=== PATIENT | female | born 1975 | race African-American/Black ===

== ENCOUNTER 2016-10-03 13:03 | Emergency (ER) | payer OTHER ==
[~2016-10-03] VITALS: Ht 160 cm; Wt 117.9 kg
[~2016-10-03 13:03] MED LIST: ALBUTEROL SULF8.5 GM INH; AUGMENTIN 875-1 EAC1 ORAL; BACTRIM DS TAB1 EAC1 ORAL; BENADRYL50 MG ORAL; DIFLUCAN100 MG ORAL; DIFLUCAN150 MG PO; FLUCONAZOLE100 MG ORAL; GUAIFENESIN DM118 M1 ORAL; GUAIFENESIN-CO118 M1 ORAL; HYDROCHLOROTH12.5 M2 ORAL; HYDROCODON-ACE1 EA15 ORAL; IBUPROFEN400 MG ORAL; IBUPROFEN600 MG ORAL; LOPRESSOR25 M1 ORAL; MEDROL DOSEPAK4 MG ORAL; PREDNISONE50 MG ORAL; ROBAXIN-750750 MG PO; TESSALON PERLE100 M2 ORAL; UNOBMED; ZITHROMAX250 MG ORAL
[2016-10-03 13:31] VITALS: BP 132/87
[2016-10-03] MEDS ORDERED: Methocarbamol 750mg tab ORAL ONE (13:45)
[2016-10-03] MEDS ORDERED: IBUPROFEN600 MG ORAL (15:06)
[2016-10-03] MEDS ORDERED: ROBAXIN-750750 MG PO (15:06)
[2016-10-03 15:18] VITALS: BP 125/84
--- NOTE | 2016-10-03 22:32 | Emergency Room Report ---
History of Present Illness General Chief Complaint: Pain Present Illness HPI The pt is a 41 yo F presenting with R lower leg pain which began this morning for no known reason. Pain is described as a 10/10 dull ache and is described as feeling deep. Pain does not radiate. Pain is worsened with walking. The pt also noticed swelling to the leg. Pt denies numbness or tingling of the extremity. The pt denies any known injury to the leg, OCP use, smoking, or recent long periods of inactivity. Pt denies any other symptoms including N, V,F, chills, CP , SOB, cough, abd pain Allergies: Coded Allergies: TRAMADOL (Verified Allergy, Unknown, 06/12/15) Patient History Past Medical History: see triage record Pertinent Family History: none Reviewed Nursing Documentation: PMH: Agreed, PSxH: Agreed Nursing Documentation-PMH Hx Hypertension: Yes Hx Seizures: Yes Review of Systems All Other Systems: negative except mentioned in HPI Physical Exam Vital Signs Date Time Temp Pulse Resp B/P Pulse Ox O2 Delivery O2 Flow Rate FiO2 10/03/16 13:29 97.9 78 20 132/87 99 10/03/16 15:18 Room Air Sp02 EP Interpretation: reviewed, normal General Appearance: no apparent distress, alert, GCS 15, non-toxic Head: normocephalic, atraumatic Eyes: bilateral eye PERRL, bilateral eye normal inspection ENT: hearing grossly normal, normal pharynx, no angioedema, normal voice Neck: normal inspection, full range of motion, supple/symm/no masses Respiratory: chest non-tender, lungs clear, normal breath sounds, speaking full sentences Cardiovascular #1: regular rate, rhythm, no edema Musculoskeletal: calf tenderness - R mid calf, other - antalgic gait Neurologic: alert, oriented x3, responsive, motor strength/tone normal, sensory intact, speech normal Psychiatric: judgement/insight normal, memory normal, mood/affect normal, no suicidal/homicidal ideation Skin: normal color, no rash, warm/dry, well hydrated Lymphatic: no adenopathy Medical Decision Making PA Attestation Dr. Kirkpatrick is my supervising physician. Patient management was discussed with my supervising physician Diagnostic Impression: Primary Impression: Strain of calf muscle ER Course The pt is a 41 yo F presenting with R calf pain which suddenly began this morning Ddx considered include but not limited to DVT, sprain/strain, fracture, contusion, PE: vitals WNL. No tachypnea. NAD Lungs are CTA bilat. R leg: No visible edema. TTP over the deep mid calf. Evident pain and antalgic gait with ambulation The pt is given motrin and robaxin for pain Venous duplex of the lower leg is unremarkable. No evidence of DVT Neg The pt will be DE'ed home with prescriptions for motrin and robaxin and will FU with PMD. ER precautions given Laboratory Tests Test 10/03/16 13:43 Urine HCG, Qualitative Negative Lab Results Impression Neg preg CT/MRI/US Diagnostic Results CT/MRI/US Diagnostic Results : Imaging Test Ordered: venous duplex Impression No evidence of DVT Last Vital Signs Date Time Temp Pulse Resp B/P Pulse Ox O2 Delivery O2 Flow Rate FiO2 10/03/16 15:18 98.0 80 18 125/84 100 Room Air Status: improved Disposition: HOME, SELF-CARE Condition: Improved Scripts Methocarbamol* (ROBAXIN-750*) 750 Mg Tablet 750 MG PO TID, #21 TAB 0 Refills Prov: AVILA LAGUNAS 10/03/16 Ibuprofen* (MOTRIN*) 600 Mg Tablet 600 MG ORAL Q8H Y for For Pain, #30 TAB 0 Refills Prov: AVILA LAGUNAS.A. 10/03/16 Referrals: RICH GRULLON PLN,REFERRI (PCP) Patient Instructions: Muscle Strain Additional Instructions: I discussed my findings with the patient. All questions and concerns have been answered. Treatment and medication compliance have been addressed. I advised the patient that they need to follow up with PMD in 3-5 days. Return to ED if pain remains or worsens, numbness or tingling occurs, new rash is noticed, fever is noticed, or if needed for any reason. Patient verbalized understanding of discharge instructions. AVILA LAGUNAS Oct 03, 2016 22:32
--- NOTE | 2016-10-07 23:28 | Diagnostic Imaging Report ---
APPROVED REPORT CPT Code: 47355 Present Symptoms Lower Extremity Pain: Right RIGHT LEG: Venous imaging reveals a patent deep venous system. There is no evidence of thrombus within the femoral, popliteal or tibial segments. The greater saphenous vein is also within normal limits. Doppler indicates normal spontaneous flow within these segments.
== END 2016-10-03 15:18 | disposition home or self-care (01) ==
LOC: EMR 13:49
DX: S86.912A Strain of unspecified muscle(s) and tendon(s) at lower leg level, left leg, initial encounter (principal); X58.XXXA Exposure to other specified factors, initial encounter; Y93.9 Activity, unspecified; Y92.9 Unspecified place or not applicable; Z88.8 Allergy status to other drugs, medicaments and biological substances; I10 Essential (primary) hypertension
CPT/HCPCS: 81025; 93971; 99284

== ENCOUNTER 2016-10-17 21:38 | Emergency (ER) | payer OTHER ==
[~2016-10-17] VITALS: Ht 157.5 cm; Wt 99.8 kg
[2016-10-17] MEDS ORDERED: Morphine Sulfate 4mg/ml Inj IVP ONE ×2 (22:15→23:15)
[2016-10-17] MEDS ORDERED: LORazepam Inj 2mg/ml 1ml IV ONE (22:15)
[2016-10-17 22:44] LABS: BASOPHILS % (AUTO) 0.8 % (0.0-2.0); EOSINOPHILS % (AUTO) 1.1 % (0.0-3.0); LYMPHOCYTES % (AUTO) 18.6 % (20.0-45.0); MEAN CORPUSCULAR HEMOGLOBIN 21.1 PG (27.0-31.0); MEAN CORPUSCULAR HGB CONC 29.6 G/DL (32.0-36.0); MEAN CORPUSCULAR VOLUME 71 FL (80-99); MEAN PLATELET VOLUME 7.3 FL (6.5-10.1); MONOCYTES % (AUTO) 3.7 % (1.0-10.0); NEUTROPHILS % (AUTO) 75.8 % (45.0-75.0); PLATELET COUNT 369 K/UL (150-450); RED BLOOD COUNT 4.22 M/UL (4.20-5.40); RED CELL DISTRIBUTION WIDTH 17.3 % (11.6-14.8); WHITE BLOOD COUNT 11.2 K/UL (4.8-10.8)
[2016-10-17 22:57] LABS: INR 0.9 (0.9-1.1); PROTHROMBIN TIME 9.6 SEC (9.30-11.50)
[2016-10-17 23:02] VITALS: BP 132/79
[2016-10-17 23:03] LABS: ANION GAP 17 (5-15); CALCIUM 8.5 mg/dL (8.6-10.2); CARBON DIOXIDE 25 mEQ/L (20-30); CHLORIDE 96 mEQ/L (98-107); CREATININE 0.9 mg/dL (0.5-0.9); GLOMERULAR FILTRATION RATE > 60 mL/min (>60); HEMOLYSIS 0; POTASSIUM 3.2 mEQ/L (3.4-4.9); SODIUM 138 mEQ/L (135-145)
[2016-10-18 00:44] LABS: CKMB 2.6 ng/mL (< 3.8)
[2016-10-18 01:00] VITALS: BP 137/76
[2016-10-18] MEDS ORDERED: HYDROmorphone 1mg/ml Carpuject ONE (01:31)
[2016-10-18] MEDS ORDERED: HYDROmorphone 1mg/ml Carpuject IVP ONE (02:00)
--- NOTE | 2016-10-18 02:14 | Emergency Room Report ---
History of Present Illness General Chief Complaint: Pain Source: Patient Present Illness HPI Is a 41-year-old female with no past medical history. She presents with chief complaint of right leg pain and swelling. Onset was acute and occurred about 2 hours ago. No trauma. She has some is symptom 2 weeks ago. She came here and negative ultrasound. The next day she had bruising laterally and the swelling went down. Today swelling is worse. She felt numbness and tightness. No fever or chills. Worse with movement. Worse with walking. Allergies: Coded Allergies: TRAMADOL (Verified Allergy, Unknown, 06/12/15) Patient History Past Medical History: none, see triage record, old chart reviewed Past Surgical History: none Pertinent Family History: none Social History: Denies: smoking Now: No Immunizations: other Reviewed Nursing Documentation: PMH: Agreed, PSxH: Agreed Nursing Documentation-PMH Past Medical History: No History, Except For Hx Hypertension: Yes Hx Seizures: Yes Review of Systems Eye: Denies: blurred vision, eye pain ENT: Denies: ear pain, nose congestion, throat swelling Respiratory: Denies: cough, shortness of breath Cardiovascular: Denies: chest pain, palpitations Gastrointestinal: Denies: abdominal pain, diarrhea, nausea, vomiting Musculoskeletal: Reports: muscle pain, Denies: back pain, joint pain Skin: Denies: rash Neurological: Denies: headache, numbness Endocrine: Denies: increased thirst, increased urine Hematologic/Lymphatic: Denies: easy bruising All Other Systems: negative except mentioned in HPI Physical Exam Vital Signs Date Time Temp Pulse Resp B/P Pulse Ox O2 Delivery O2 Flow Rate FiO2 10/17/16 21:54 97.5 97 15 132/79 98 Room Air vitals normal Sp02 EP Interpretation: reviewed, normal General Appearance: well appearing, no apparent distress, alert, obese Head: normocephalic, atraumatic Eyes: bilateral eye EOMI, bilateral eye PERRL ENT: hearing grossly normal, normal pharynx Neck: full range of motion, supple, no meningismus Respiratory: chest non-tender, lungs clear, normal breath sounds Cardiovascular #1: regular rate, rhythm, no murmur Gastrointestinal: normal bowel sounds, non tender, no mass, no organomegaly, no bruit, non-distended Musculoskeletal: back normal, normal range of motion, other - Right lower leg: She has edema and tightness to the lower extremity. Most of the tightness is in the superficial posterior and lateral compartments. She has strong pulses and sensation. Normal warmth. Movement of the ankle there is increased pain but not severely. Full range of motion of the knee. Neurologic: alert, oriented x3 Psychiatric: mood/affect normal Skin: warm/dry Medical Decision Making Diagnostic Impression: Primary Impression: Right leg swelling ER Course She presents with edema and swelling to the right lower extremity. No evidence of DVT. She may have a bleeding varicose vein that causes swelling. No evidence of arterial occlusion. My main concern is that this may be compartment syndrome. Unknown etiology. Is no trauma. Unfortunately, I do not have the equipment to measure her compartment pressures. There is no Matt machine in the ER or the hospital. Patient has been here for almost 6 hours now. Her pain is improving. The edema and tenderness also improved. Compartment is now much softer. I suspect that she has a small bleeding varicose vein that causes swelling. Am unable to get her transfer to [facility]. Since she is improving, I think she can go home. Patient and family is agreeable with this. Again there is no trauma or strenuous activities. Lab Results Impression labs normal CT/MRI/US Diagnostic Results CT/MRI/US Diagnostic Results : Imaging Test Ordered: Right lower extremity ultrasound Impression negative for DVT per rigging worker Last Vital Signs Date Time Temp Pulse Resp B/P Pulse Ox O2 Delivery O2 Flow Rate FiO2 10/18/16 01:00 94 16 137/76 100 Room Air 10/17/16 23:42 97.5 Status: unchanged Disposition: HOME, SELF-CARE Condition: Stable Scripts Hydrocodone/Acetaminophen 5-325* (HYDROCODONE/ACETAMINOPHEN 5-325*) 1 Each Tablet 1 TAB ORAL Q6H Y for For Pain, #20 TAB 0 Refills Prov: ARLEEN GARZA M.D. 10/18/16 Referrals: RICH ESTEBAN TH PLN,REFERRI (PCP) Additional Instructions: Elevate leg. Ice pack to area. Return for increasing pain, fever, chills, or any concern. ARLEEN GARZA M.D. Oct 18, 2016 02:14
[2016-10-18] MEDS ORDERED: Bactrim DS (160mg/800mg) tab ORAL ONE (03:15)
[2016-10-18] MEDS ORDERED: HYDROCODON-ACE1 EA15 ORAL (03:22)
[2016-10-18 03:35] VITALS: BP 135/74
--- NOTE | 2016-10-22 10:29 | Diagnostic Imaging Report ---
APPROVED REPORT CPT Code: 33341 Present Symptoms Lower Extremity Pain: Right RIGHT LEG: Venous imaging reveals a patent deep venous system. There is no evidence of thrombus within the femoral, popliteal or tibial segments. The greater saphenous vein is also within normal limits. Doppler indicates normal spontaneous flow within these segments.
== END 2016-10-18 03:35 | disposition home or self-care (01) ==
LOC: EMR 22:00
DX: M79.89 Other specified soft tissue disorders (principal); M79.604 Pain in right leg; R20.0 Anesthesia of skin; Z88.6 Allergy status to analgesic agent; I10 Essential (primary) hypertension
CPT/HCPCS: 36415; 80048; 82550; 82553; 85025; 85610; 85730; 93971; 96374; 96375; 99284; J1170; J2270; J2405

== ENCOUNTER 2016-10-25 01:30 | Inpatient (IN) | payer OTHER ==
[~2016-10-25] VITALS: Ht 160 cm; Wt 100.2 kg
[2016-10-25 01:47] VITALS: BP 130/88
[2016-10-25] MEDS ORDERED: HYDROmorphone 1mg/ml Carpuject IVP ONE ×2 (02:00→04:00)
--- NOTE | 2016-10-25 02:56 | Emergency Room Report ---
History of Present Illness General Chief Complaint: Pain Source: Patient Present Illness HPI Is a 41-year-old female presents with right leg swelling. Has been ongoing for over a week now. I saw her on October 17. Labs unremarkable. Ultrasound negative for DVT but showed generalized edema. Swelling got better but still very painful. Initially, I wanted to rule out compartment syndrome but we do not have the Matt here. Patient was to be transferred to [facility] but symptom got better so she left. She is back now because of increasing pain. Had fever of 103 2 days ago. No new trauma. No nausea no vomiting. pain is 9/10. Allergies: Coded Allergies: TRAMADOL (Verified Allergy, Unknown, 06/12/15) Patient History Past Medical History: see triage record, old chart reviewed Past Surgical History: none Pertinent Family History: none Social History: Denies: smoking Last Menstrual Period: Aug 2016 Now: No Immunizations: other Reviewed Nursing Documentation: PMH: Agreed, PSxH: Agreed Nursing Documentation-PMH Hx Hypertension: Yes Hx Seizures: Yes Review of Systems Eye: Denies: blurred vision, eye pain ENT: Denies: ear pain, nose congestion, throat swelling Respiratory: Denies: cough, shortness of breath Cardiovascular: Denies: chest pain, palpitations Gastrointestinal: Denies: abdominal pain, diarrhea, nausea, vomiting Musculoskeletal: Reports: joint pain, muscle pain, Denies: back pain Skin: Denies: rash Neurological: Denies: headache, numbness Endocrine: Denies: increased thirst, increased urine Hematologic/Lymphatic: Denies: easy bruising All Other Systems: negative except mentioned in HPI Physical Exam Vital Signs Date Time Temp Pulse Resp B/P Pulse Ox O2 Delivery O2 Flow Rate FiO2 10/25/16 01:37 98.8 95 16 135/89 98 Room Air vitals unremarkable Sp02 EP Interpretation: reviewed, normal General Appearance: well appearing, no apparent distress, alert Head: normocephalic, atraumatic Eyes: bilateral eye EOMI, bilateral eye PERRL ENT: hearing grossly normal, normal pharynx Neck: full range of motion, supple, no meningismus Respiratory: chest non-tender, lungs clear, normal breath sounds Cardiovascular #1: regular rate, rhythm, no murmur Gastrointestinal: normal bowel sounds, non tender, no mass, no organomegaly, no bruit, non-distended Musculoskeletal: back normal, normal range of motion, tender - Right leg: Tenderness and edema along the lower extremity. Mostly localized to the lateral right leg/calf area. Sensation normal. Compartments are softer today dad about a week ago. Sensation normal. Dorsalis pedis and posterior tibialis pulses are normal. Neurologic: alert, oriented x3 Psychiatric: mood/affect normal Skin: warm/dry Procedures Additional Procedure Procedure Narrative Procedure: Aspiration Indication: Fluid collection Description: Area clean with Betadine and then chlorhexidine. Local anesthetic with 1% lidocaine without epinephrine. I injected 5 mL. Using a 16-gauge needle and ultrasound guided, I tried aspect of fluid collection. Initially able to get out about 4 mL of clotted blood. Afterward unable to get any more. Wound was cleaned and then dressed sterilely. Patient tolerated procedure without a problem. Medical Decision Making Diagnostic Impression: Primary Impression: Traumatic hematoma of lower leg with infection Qualified Codes: S80.11XA - Contusion of right lower leg, initial encounter; L08.9 - Local infection of the skin and subcutaneous tissue, unspecified ER Course Patient presents with right leg swelling. She did recall that a week ago somebody called her name to turn around quickly. She felt pain in her right calf. Afterward it swell up. She been came to the ER the next day. Labs been was unremarkable. Ultrasound negative for DVT. It did show edema. No fluid collection. She was discharged home and has been icing it down. A day or 2 ago , she spiked a fever. She is afebrile here. Now, CT scan showed a peripherally enhancing heterogeneous fluid collection. This is concerning for hematoma essentially with infection. I started on antibiotics. Was made for IV antibiotics. She may need interventional radiology for drainage. She may need surgical intervention. Laboratory Tests Test 10/25/16 03:55 10/25/16 04:45 White Blood Count 12.0 K/UL (4.8-10.8) H Red Blood Count 4.26 M/UL (4.20-5.40) Hemoglobin 8.9 G/DL (12.0-16.0) L Hematocrit 29.6 % (37.0-47.0) L Mean Corpuscular Volume 69 FL (80-99) L Mean Corpuscular Hemoglobin 20.9 PG (27.0-31.0) L Mean Corpuscular Hemoglobin Concent 30.1 G/DL (32.0-36.0) L Red Cell Distribution Width 18.2 % (11.6-14.8) H Platelet Count 430 K/UL (150-450) Mean Platelet Volume 8.0 FL (6.5-10.1) Neutrophils (%) (Auto) 74.0 % (45.0-75.0) Lymphocytes (%) (Auto) 20.7 % (20.0-45.0) Monocytes (%) (Auto) 3.6 % (1.0-10.0) Eosinophils (%) (Auto) 1.1 % (0.0-3.0) Basophils (%) (Auto) 0.6 % (0.0-2.0) Prothrombin Time 9.7 SEC (9.30-11.50) Prothromb Time International Ratio 1.0 (0.9-1.1) Activated Partial Thromboplast Time 27 SEC (23-33) Sodium Level 138 mEQ/L (135-145) Potassium Level 4.2 mEQ/L (3.4-4.9) Chloride Level 95 mEQ/L (98-107) L Carbon Dioxide Level 27 mEQ/L (20-30) Anion Gap 16 (5-15) H Blood Urea Nitrogen 11 mg/dL (7-23) Creatinine 0.9 mg/dL (0.5-0.9) Estimat Glomerular Filtration Rate > 60 mL/min (>60) Glucose Level 121 mg/dL (74-106) H Calcium Level 9.2 mg/dL (8.6-10.2) Total Bilirubin 0.2 mg/dL (0.0-1.2) Aspartate Amino Transf (AST/SGOT) 29 U/L (5-40) Alanine Aminotransferase (ALT/SGPT) 14 U/L (3-33) Alkaline Phosphatase 74 U/L (35-104) Total Protein 7.7 g/dL (6.6-8.7) Albumin 4.0 g/dL (3.5-5.2) Globulin 3.7 g/dL Albumin/Globulin Ratio 1.0 (1.0-2.7) Lactic Acid Level Pending Lab Results Impression labs mild leukocytosis CT/MRI/US Diagnostic Results CT/MRI/US Diagnostic Results : Imaging Test Ordered: CT right lower extremity Impression Read by radiologist. Peripherally enhancing heterogeneous fluid collection in the posterior compartment of the leg between the muscle layers. Measured 6.3 x 2.7 x 11.2 cm. No gas in the soft tissue. Last Vital Signs Date Time Temp Pulse Resp B/P Pulse Ox O2 Delivery O2 Flow Rate FiO2 10/25/16 01:47 98.8 90 16 130/88 98 Room Air Status: improved Disposition: ADMITTED INPATIENT Condition: Serious Referrals: NON PHYSICIAN (PCP) ARLEEN GARZA M.D. Oct 25, 2016 02:56
[2016-10-25] MEDS ORDERED: Cefepime 1gm vial ONE (03:55)
[2016-10-25] MEDS ORDERED: Cefepime HCl 1 GM in NS 55 ML IV SCH (04:00)
[2016-10-25 04:02] LABS: BASOPHILS % (AUTO) 0.6 % (0.0-2.0); EOSINOPHILS % (AUTO) 1.1 % (0.0-3.0); LYMPHOCYTES % (AUTO) 20.7 % (20.0-45.0); MEAN CORPUSCULAR HEMOGLOBIN 20.9 PG (27.0-31.0); MEAN CORPUSCULAR HGB CONC 30.1 G/DL (32.0-36.0); MEAN CORPUSCULAR VOLUME 69 FL (80-99); MONOCYTES % (AUTO) 3.6 % (1.0-10.0); PLATELET COUNT 430 K/UL (150-450); RED BLOOD COUNT 4.26 M/UL (4.20-5.40); RED CELL DISTRIBUTION WIDTH 18.2 % (11.6-14.8)
[2016-10-25 04:17] LABS: PROTHROMBIN TIME 9.7 SEC (9.30-11.50)
[2016-10-25 04:24] LABS: ALANINE AMINOTRANSFERASE 14 U/L (3-33); ANION GAP 16 (5-15); ASPARTATE AMINO TRANSFERASE 29 U/L (5-40); CALCIUM 9.2 mg/dL (8.6-10.2); CARBON DIOXIDE 27 mEQ/L (20-30); CHLORIDE 95 mEQ/L (98-107); CREATININE 0.9 mg/dL (0.5-0.9); GLOMERULAR FILTRATION RATE > 60 mL/min (>60); HEMOLYSIS 80; POTASSIUM 4.2 mEQ/L (3.4-4.9); SODIUM 138 mEQ/L (135-145); TOTAL PROTEIN 7.7 g/dL (6.6-8.7)
[2016-10-25] MEDS ORDERED: LORazepam Inj 2mg/ml 1ml ONE (04:59)
[2016-10-25] MEDS ORDERED: LORazepam Inj 2mg/ml 1ml IV ONE (05:00)
[2016-10-25 05:15] VITALS: BP 135/84
[2016-10-25 08:03] VITALS: BP 124/78
[2016-10-25] MEDS: Metoprolol 50mg tab ORAL SCH ×2 (09:40→20:33)
[2016-10-25] MEDS: OXcarbazepine 150mg tab ORAL SCH ×2 (12:05→20:32)
[2016-10-25] MEDS: HYDROmorphone 1mg/ml Carpuject IVP PRN ×3 (12:06→20:33)
--- NOTE | 2016-10-25 15:09 | History and Physical ---
History of Present Illness General Reason for Hospitalization: Right leg Pain Present Illness HPI s a 41-year-old female presents with right leg swelling. Has been ongoing for over a week now. was seen on October 17 for the same problem, she was to be transferred to [facility] but symptom got better so she left. Ultrasound negative for DVT but showed generalized edema. She came back to the due to right leg increasing pain. Had fever of 103 2 days ago. No new trauma. No nausea no vomiting. pain is 9/10. Allergies: Coded Allergies: TRAMADOL (Verified Allergy, Unknown, 06/12/15) Medication History Scheduled Cephalexin* (Keflex*), 500 MG ORAL EVERY 12 HOURS, (Reported) Fluconazole (Fluconazole), 150 MG ORAL ONCE, (Reported) Hydrochlorothiazide* (Hydrochlorothiazide*), 12.5 MG ORAL DAILY, (Reported) Methocarbamol* (Robaxin-750*), 750 MG PO TID Metoprolol Tartrate (Metoprolol Tartrate), 25 MG ORAL EVERY 12 HOURS, (Reported) Scheduled PRN Hydrocodone Bit/Acetaminophen 10-325* ([place] 10-325*), 1 TAB ORAL BID PRN for For Pain, (Reported) Hydrocodone/Acetaminophen 5-325* (Hydrocodone/Acetaminophen 5-325*), 1 TAB ORAL Q6H PRN for For Pain Ibuprofen* (Motrin*), 600 MG ORAL Q8H PRN for For Pain Patient History Healthcare decision maker Resuscitation status Full Code Advanced Directive on File Review of Systems Constitutional: Reports: weakness Eye: Denies: acuity changes, blurred vision, discharge, double vision, eye pain , no symptoms, nose congestion, nose pain, other, see HPI, tearing ENT: Denies: ear discharge, ear pain, hearing loss, mouth pain, nasal discharge , no symptoms, nose congestion, nose pain, other, see HPI, throat pain, throat swelling Respiratory: Denies: REY, cough, no symptoms, orthopnea, other, see HPI, shortness of breath, sputum, stridor, wheezing Cardiovascular: Denies: PND, chest pain, edema, no symptoms, other, palpitations, see HPI, syncope Gastrointestinal: Denies: abdominal pain, constipation, diarrhea, hematemesis, melena, nausea, no symptoms, other, see HPI, vomiting Genitourinary: Denies: discharge, dysuria, frequency, hematuria, incontinence, no symptoms, other, pain, retention, see HPI, urgency, vag bleed/dc Musculoskeletal: Reports: other - right leg edema and pain Skin: Denies: change in color, change in hair/nails, dryness, lesions, no symptoms, other, rash, see HPI Psychiatric: Denies: HI, SI, anxiety, depressed feelings, emotional problems, hallucinations, no symptoms, other, prior hx, see HPI Neurological: Denies: dizziness, focal weakness, headache, no symptoms, numbness, other, paresthesia, see HPI, seizure, syncope, tingling, tremors Endocrine: Denies: excessive sweating, flushing, increased thirst, increased urine, intolerance to temperature, no symptoms, other, see HPI, unexplained weight loss Hematologic/Lymphatic: Denies: anemia, blood clots, diathesis, easy bleeding, easy bruising, no symptoms, other, see HPI, swollen glands Physical Exam General Appearance: no apparent distress, alert Lines, tubes and drains: peripheral HEENT: atraumatic, anicteric, mucous membranes moist, PERRL Neck: normal alignment, supple, normal inspection Respiratory/Chest: lungs clear, normal breath sounds, no respiratory distress Cardiovascular/Chest: normal rate, regular rhythm, no JVD Abdomen: soft, no organomegaly, no mass Extremities: calf tenderness, moderate edema - right leg Skin Exam: warm/dry Neurologic: alert, oriented x 3, responsive, normal mood/affect Last 24 Hour Vital Signs Date Time Temp Pulse Resp B/P Pulse Ox O2 Delivery O2 Flow Rate FiO2 10/25/16 09:40 71 124/78 10/25/16 08:03 97.5 71 16 124/78 98 Room Air 10/25/16 05:17 88 18 135/84 98 Room Air 10/25/16 05:15 98.8 88 16 135/84 98 Room Air 10/25/16 04:56 98.8 10/25/16 02:58 98.8 10/25/16 01:47 98.8 90 16 130/88 98 Room Air 10/25/16 01:37 98.8 95 16 135/89 98 Room Air Intake and Output 10/24/16 10/25/16 19:00 07:00 Intake Total 1055 ml Output Total 0 ml Balance 1055 ml IV Total 1055 ml Output Urine Total 0 ml Laboratory Tests Test 10/25/16 03:55 10/25/16 04:45 White Blood Count 12.0 K/UL (4.8-10.8) H Red Blood Count 4.26 M/UL (4.20-5.40) Hemoglobin 8.9 G/DL (12.0-16.0) L Hematocrit 29.6 % (37.0-47.0) L Mean Corpuscular Volume 69 FL (80-99) L Mean Corpuscular Hemoglobin 20.9 PG (27.0-31.0) L Mean Corpuscular Hemoglobin Concent 30.1 G/DL (32.0-36.0) L Red Cell Distribution Width 18.2 % (11.6-14.8) H Platelet Count 430 K/UL (150-450) Mean Platelet Volume 8.0 FL (6.5-10.1) Neutrophils (%) (Auto) 74.0 % (45.0-75.0) Lymphocytes (%) (Auto) 20.7 % (20.0-45.0) Monocytes (%) (Auto) 3.6 % (1.0-10.0) Eosinophils (%) (Auto) 1.1 % (0.0-3.0) Basophils (%) (Auto) 0.6 % (0.0-2.0) Prothrombin Time 9.7 SEC (9.30-11.50) Prothromb Time International Ratio 1.0 (0.9-1.1) Activated Partial Thromboplast Time 27 SEC (23-33) Sodium Level 138 mEQ/L (135-145) Potassium Level 4.2 mEQ/L (3.4-4.9) Chloride Level 95 mEQ/L (98-107) L Carbon Dioxide Level 27 mEQ/L (20-30) Anion Gap 16 (5-15) H Blood Urea Nitrogen 11 mg/dL (7-23) Creatinine 0.9 mg/dL (0.5-0.9) Estimat Glomerular Filtration Rate > 60 mL/min (>60) Glucose Level 121 mg/dL (74-106) H Calcium Level 9.2 mg/dL (8.6-10.2) Total Bilirubin 0.2 mg/dL (0.0-1.2) Aspartate Amino Transf (AST/SGOT) 29 U/L (5-40) Alanine Aminotransferase (ALT/SGPT) 14 U/L (3-33) Alkaline Phosphatase 74 U/L (35-104) Total Protein 7.7 g/dL (6.6-8.7) Albumin 4.0 g/dL (3.5-5.2) Globulin 3.7 g/dL Albumin/Globulin Ratio 1.0 (1.0-2.7) Lactic Acid Level 1.30 mmol/L (0.66-2.22) Height (Feet): 5 Height (Inches): 3.00 Weight (Pounds): 221 Medications Current Medications Medications (Trade) Dose Ordered Sig/Keri Route PRN Reason Start Time Stop Time Status Last Admin Dose Admin Hydromorphone HCl (Dilaudid) 1 mg Q4H PRN IVP For Pain 10/25/16 06:45 11/01/16 06:44 10/25/16 12:06 Metoprolol Tartrate (Lopressor) 50 mg Q12HR ORAL 10/25/16 09:00 11/24/16 08:59 10/25/16 09:40 Oxcarbazepine (Trileptal) 150 mg EVERY 12 HOURS ORAL 10/25/16 12:00 11/24/16 11:59 10/25/16 12:05 Pantoprazole (Protonix) 40 mg DAILY ORAL 10/25/16 12:00 11/24/16 11:59 10/25/16 12:05 Objective Narrative RIGHT LEG: Venous imaging reveals a patent deep venous system. There is no evidence of thrombus within the femoral, popliteal or tibial segments. The greater saphenous vein is also within normal limits. Doppler indicates normal spontaneous flow within these segments. 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 Oct 25, 2016 15:09
[2016-10-25 16:00] VITALS: BP 123/69
[2016-10-25 19:00] VITALS: BP 135/79
[2016-10-26] VITALS (8 sets, daily range): BP systolic 104–142; BP diastolic 58–89
[2016-10-26] MEDS: HYDROmorphone 1mg/ml Carpuject IVP PRN ×6 (00:37→20:29)
[2016-10-26 07:36] LABS: ANION GAP 14 (5-15); CALCIUM 8.9 mg/dL (8.6-10.2); CARBON DIOXIDE 27 mEQ/L (20-30); CHLORIDE 98 mEQ/L (98-107); CREATININE 0.8 mg/dL (0.5-0.9); GLOMERULAR FILTRATION RATE > 60 mL/min (>60); HEMOLYSIS 2; POTASSIUM 3.6 mEQ/L (3.4-4.9); SODIUM 139 mEQ/L (135-145)
[2016-10-26 07:37] LABS: BASOPHILS % (AUTO) 0.5 % (0.0-2.0); EOSINOPHILS % (AUTO) 1.4 % (0.0-3.0); LYMPHOCYTES % (AUTO) 22.4 % (20.0-45.0); MEAN CORPUSCULAR HEMOGLOBIN 21.1 PG (27.0-31.0); MEAN CORPUSCULAR HGB CONC 30.3 G/DL (32.0-36.0); MEAN CORPUSCULAR VOLUME 70 FL (80-99); MONOCYTES % (AUTO) 4.8 % (1.0-10.0); NEUTROPHILS % (AUTO) 70.8 % (45.0-75.0); PLATELET COUNT 359 K/UL (150-450); RED BLOOD COUNT 3.99 M/UL (4.20-5.40); RED CELL DISTRIBUTION WIDTH 17.8 % (11.6-14.8); WHITE BLOOD COUNT 10.4 K/UL (4.8-10.8)
[2016-10-26] MEDS: OXcarbazepine 150mg tab ORAL SCH ×2 (08:38→20:44)
[2016-10-26] MEDS: Metoprolol 50mg tab ORAL SCH ×3 (08:42→20:44)
[2016-10-26] MEDS ORDERED: DiphenhydrAMINE 50mg/ml Inj IVP PRN (10:30)
--- NOTE | 2016-10-26 20:03 | General Progress Note ---
Assessment/Plan Problem List: (1) Traumatic hematoma of lower leg with infection ICD Codes: S80.10XA - Contusion of unspecified lower leg, initial encounter; L08.9 - Local infection of the skin and subcutaneous tissue, unspecified SNOMED: 578560149, [id number], [id number] Qualifiers: Qualified Codes: S80.11XA - Contusion of right lower leg, initial encounter ; L08.9 - Local infection of the skin and subcutaneous tissue, unspecified Status: doing well, stable Assessment/Plan Right leg ulcer (mild) Cx is negative Keflex 500mg po bid x 7days [place] 10/325 mg 1 po bid prn #45 dc home Advised pt to follow up with PCP Subjective Constitutional: Denies: chills, diaphoresis, fever, malaise, no symptoms, other , weakness HEENT: Denies: blurred vision, double vision, ear discharge, ear pain, eye pain , mouth pain, mouth swelling, no symptoms, nose congestion, nose pain, other, tearing, throat pain, throat swelling Cardiovascular: Denies: chest pain, edema, irregular heart rate, lightheadedness, no symptoms, other, palpitations, syncope Respiratory: Denies: SOB at rest, SOB with excertion, cough, no symptoms, orthopnea, other, shortness of breath, sputum, stridor, wheezing Gastrointestinal/Abdominal: Denies: abdomen distended, abdominal pain, black stools, blood in stool, constipated, diarrhea, difficulty swallowing, nausea, no symptoms, other, poor appetite, poor fluid intake, rectal bleeding, tarry stools, vomiting Genitourinary: Denies: burning, discharge, flank pain, frequency, hematuria, incontinence, no symptoms, other, pain, urgency Neurologic/Psychiatric: Denies: anxiety, depressed, emotional problems, headache, no symptoms, numbness, other, paresthesia, pre-existing deficit, seizure, tingling, tremors, weakness Endocrine: Denies: excessive sweating, flushing, increased hunger, increased thirst, increased urine, intolerance to cold, intolerance to heat, no symptoms, other, unexplained weight gain, unexplained weight loss Hematologic/Lymphatic: Denies: anemia, easy bleeding, easy bruising, no symptoms, other Allergies: Coded Allergies: TRAMADOL (Verified Allergy, Unknown, 06/12/15) Subjective In bed, in no apparent distress, stated that she still has some pain in her leg , discussed with pt to follow up with PCP. Objective Last 24 Hour Vital Signs Date Time Temp Pulse Resp B/P Pulse Ox O2 Delivery O2 Flow Rate FiO2 10/26/16 16:17 98.4 69 19 110/58 96 Room Air 10/26/16 12:20 98.0 70 19 125/73 95 Room Air 10/26/16 10:10 82 124/65 10/26/16 10:10 82 124/65 10/26/16 08:10 98.1 76 19 104/63 95 Room Air 10/26/16 04:00 97.5 81 18 118/64 96 Room Air 10/26/16 00:20 97.9 70 18 142/89 96 Room Air 10/25/16 21:03 98.1 10/25/16 20:33 91 135/79 Intake and Output 10/25/16 10/26/16 19:00 07:00 Intake Total 1000 ml 240 ml Balance 1000 ml 240 ml Intake Oral 1000 ml 240 ml # Voids 2 7 Laboratory Tests 10/26/16 04:40: White Blood Count 10.4, Red Blood Count 3.99L, Hemoglobin 8.4L, Hematocrit 27.8L , Mean Corpuscular Volume 70L, Mean Corpuscular Hemoglobin 21.1L, Mean Corpuscular Hemoglobin Concent 30.3L, Red Cell Distribution Width 17.8H, Platelet Count 359, Mean Platelet Volume 8.0, Neutrophils (%) (Auto) 70.8, Lymphocytes (%) (Auto) 22.4, Monocytes (%) (Auto) 4.8, Eosinophils (%) (Auto) 1.4, Basophils (%) (Auto) 0.5, Sodium Level 139, Potassium Level 3.6, Chloride Level 98, Carbon Dioxide Level 27, Anion Gap 14, Blood Urea Nitrogen 12, Creatinine 0.8, Estimat Glomerular Filtration Rate > 60, Glucose Level 110H, Calcium Level 8.9 10/26/16 12:25: Urine HCG, Qualitative Negative Height (Feet): 5 Height (Inches): 3.00 Weight (Pounds): 221 General Appearance: no apparent distress, alert EENT: normal ENT inspection Neck: non-tender, normal alignment, supple, normal inspection Cardiovascular: normal rate, regular rhythm, no JVD Respiratory/Chest: lungs clear, normal breath sounds, no respiratory distress, no accessory muscle use Abdomen: non tender, soft, no organomegaly Pelvis: normal external exam Extremities: normal range of motion, non-tender, normal inspection, no calf tenderness, other - right leg ulcer 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 Oct 26, 2016 20:03
[2016-10-26] MEDS ORDERED: NORCO 10-325 T1 EACH ORAL (22:02)
[2016-10-26] MEDS ORDERED: CEPHALEXIN500 MG ORAL (22:02)
[2016-10-26] MEDS ORDERED: FLUCONAZOLE100 MG ORAL (22:04)
--- NOTE | 2016-10-27 08:05 | Diagnostic Imaging Report ---
Indication: Right leg swelling Technique: CT of the right tibia/fibula utilizing automated exposure control with intravenous contrast. Venous scanning performed. CT dose: Total DLP 629 mGycm; CTDI vol 15.3 mGy Comparison: None Findings: There is no acute fracture or dislocation. There is a peripherally enhancing heterogeneous collection/mass in the posterior compartment of the right leg deep to the gastrocnemius measuring approximately 6.3 x 2.7 x 11.2 cm. There is also mild subcutaneous stranding. No soft tissue gas is identified. Impression: Approximately 6.3 x 2.7 x 1.2 cm peripherally enhancing heterogeneous collection/mass of the posterior right leg deep to the gastrocnemius. Although this could represent a hematoma, superimposed infection or underlying neoplasm not completely excluded. Clinical correlation recommended. Followup to resolution versus further evaluation with MRI recommended. The CT scanner at [facility] is accredited by the [employer] and the scans are performed using protocols designed to limit radiation exposure to as low as reasonably achievable to attain images of sufficient resolution adequate for diagnostic evaluation.
--- NOTE | 2016-10-27 12:28 | Discharge Summary ---
Discharge Summary Hospital Course Date of Admission Oct 25, 2016 at 04:40 Date of Discharge Oct 26, 2016 at 22:30 Admitting Diagnosis Infected right leg hematoma HPI Shanae Davis is a 41 year old female who was admitted on Oct 25, 2016 at 04: 40 for Infected Right Leg Hematoma. Patient is a 41-year-old female presents with right leg swelling. Has been ongoing for over a week now. Labs unremarkable. Ultrasound negative for DVT but showed generalized edema. Swelling got better but still very painful. Initially, I wanted to rule out compartment syndrome but we do not have the Matt here. Patient was to be transferred to [facility] but symptom got better so she left. She is back now because of increasing pain. Had fever of 103 2 days ago. No new trauma. No nausea no vomiting. pain is 9/10. Patient History Past Medical History: see triage record, old chart reviewed Past Surgical History: none Pertinent Family History: none Social History: Denies: smoking Last Menstrual Period: Aug 2016 Now: No Immunizations: other Reviewed Nursing Documentation: PMH: Agreed, PSxH: Agreed Nursing Documentation-PMH Hx Hypertension: Yes Hx Seizures: Yes Last Vital Signs Procedures ER Procedure: Aspiration Indication: Fluid collection Description: Area clean with Betadine and then chlorhexidine. Initially able to get out about 4 mL of clotted blood. Patient tolerated procedure without a problem. CT/MRI/US Diagnostic Results : Imaging Test Ordered: CT right lower extremity Impression Read by radiologist. Peripherally enhancing heterogeneous fluid collection in the posterior compartment of the leg between the muscle layers. Measured 6.3 x 2.7 x 11.2 cm. No gas in the soft tissue. WOUND CULTURE Preliminary - Organism 1 >> GRAM NEGATIVE BACILLUS 1 Hospital Course Medical Decision Making Diagnostic Impression: Primary Impression: Traumatic hematoma of lower leg with infection Qualified Codes: S80.11XA - Contusion of right lower leg, initial encounter; L08.9 - Local infection of the skin and subcutaneous tissue, unspecified ER Course Patient presents with right leg swelling. She did recall that a week ago somebody called her name to turn around quickly. She felt pain in her right calf. Afterward it swell up. She been came to the ER the next day. Labs been was unremarkable. Ultrasound negative for DVT. It did show edema. No fluid collection. She was discharged home and has been icing it down. A day or 2 ago , she spiked a fever. She is afebrile here. Now, CT scan showed a peripherally enhancing heterogeneous fluid collection. This is concerning for hematoma essentially with infection. I started on antibiotics. Was made for IV antibiotics. She may need interventional radiology for drainage. She may need surgical intervention. 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 Discharge Medications Continued Medications: Cephalexin* (Keflex*) 500 Mg Capsule 500 MG ORAL EVERY 12 HOURS for 7 Days, #14 CAP 0 Refills Fluconazole (Fluconazole) 100 Mg Tablet 150 MG ORAL ONCE, #1 TAB 0 Refills Hydrocodone Bit/Acetaminophen 10-325* ([place] 10-325*) 1 Each Tablet 1 TAB ORAL BID PRN for For Pain, #45 TAB 0 Refills PRN PAIN Discharge Condition Upon Discharge: stable Discharge Disposition Patient was discharged to Home (01) Discharge Diagnoses: (1) Traumatic hematoma (2) SIRS (systemic inflammatory response syndrome) Discharge Instructions Discharge Instructions Special Instructions NURSE NOTES: Patient d/c, ambulates steadily. No s/s of distress. Belongings accounted for. Discharge instructions given. Patient denies pain at this time. IV site d/c'd. Family with patient. Verbalized understanding of discharge instructions. Patient is stable. I have been assigned to the discharge summary of this patient and did not provide any care for the patient. Daisy Styles NP, N.P. Oct 27, 2016 12:28
--- NOTE | 2016-10-28 15:22 | Diagnostic Imaging Report ---
APPROVED REPORT CPT Code: 48975 Present Symptoms Lower Extremity Pain: Right RIGHT LEG: Venous imaging reveals a patent deep venous system. There is no evidence of thrombus within the femoral, popliteal or tibial segments. The greater saphenous vein is also within normal limits. Doppler indicates normal spontaneous flow within these segments.
== END 2016-10-26 22:30 | disposition home or self-care (01) | DRG 384 ==
LOC: EMR 01:58 → 4E 04:40 → EDBEDREQ 04:55 → 4E 05:47
PROC: 0J9N3ZZ Drainage of Right Lower Leg Subcutaneous Tissue and Fascia, Percutaneous Approach (ICD-10-PCS; principal; 2016-10-25)
DX: S80.11XA Contusion of right lower leg, initial encounter (principal); R65.10 Systemic inflammatory response syndrome (SIRS) of non-infectious origin without acute organ dysfunction; L97.819 Non-pressure chronic ulcer of other part of right lower leg with unspecified severity; I10 Essential (primary) hypertension; L08.9 Local infection of the skin and subcutaneous tissue, unspecified; G40.909 Epilepsy, unspecified, not intractable, without status epilepticus; X58.XXXA Exposure to other specified factors, initial encounter; Z88.6 Allergy status to analgesic agent
CPT/HCPCS: 36415; 80048; 80053; 81025; 83605; 85025; 85610; 85730; 87040; 87070; 87205; 93971; J2405

== ENCOUNTER 2017-01-14 18:34 | Emergency (ER) | payer OTHER ==
[~2017-01-14] VITALS: Ht 160 cm; Wt 98.9 kg
[~2017-01-14 18:34] MED LIST changes: +CEPHALEXIN500 MG ORAL; +NORCO 10-325 T1 EACH ORAL
[2017-01-14 18:43] VITALS: BP 119/72
[2017-01-14] MEDS ORDERED: Albuterol ud Inhalation HHN ONE (19:15)
--- NOTE | 2017-01-14 20:12 | Emergency Room Report ---
History of Present Illness General Chief Complaint: Upper Respiratory Illness Source: Patient Present Illness HPI 41-year-old female with productive cough, subjective fevers, 6/10 sore throat and fatigue x5 days. She also reports diarrhea x 1 day. Denies abdominal pain , nausea, vomiting, abdominal tenderness. Patient reports 3 episodes of loose stools denies recent antibiotic use. Denies blood in the stool or black tarry stools. Patient reports inability to take a deep breath as it causes her to cough consistently. Patient reports wheezing. Patient states she gets bronchitis and pneumonia frequently. She has had no relief from OTC cough Syrups. She denies ill contacts, rashes, or recent travel. Denies CP, Palpitations, LOC, AMS, dizziness, Changes in Vision, Sensation, paresthesias, or a sudden severe headache. Allergies: Coded Allergies: TRAMADOL (Verified Allergy, Unknown, 06/12/15) Patient History Past Medical History: see triage record Past Surgical History: none Pertinent Family History: none Last Menstrual Period: 2 weeks ago Now: No Reviewed Nursing Documentation: PMH: Agreed, PSxH: Agreed Nursing Documentation-PMH Past Medical History: No History, Except For Hx Cardiac Problems: No - DVT Hx Hypertension: Yes Hx Cancer: No Hx Gastrointestinal Problems: Yes Hx Dialysis: No Hx Neurological Problems: Yes Hx Seizures: Yes Review of Systems All Other Systems: negative except mentioned in HPI Physical Exam Vital Signs Date Time Temp Pulse Resp B/P Pulse Ox O2 Delivery O2 Flow Rate FiO2 01/14/17 18:43 98.4 98 16 119/72 100 Room Air Sp02 EP Interpretation: reviewed, normal General Appearance: no apparent distress, alert, GCS 15, non-toxic Head: normocephalic, atraumatic Eyes: bilateral eye PERRL, bilateral eye normal inspection ENT: hearing grossly normal, normal pharynx, no angioedema, normal voice Neck: full range of motion, supple/symm/no masses Respiratory: chest non-tender, no respiratory distress, no accessory muscle use , speaking full sentences, wheezing Cardiovascular #1: regular rate, rhythm, no edema Gastrointestinal: normal bowel sounds - hyperactive bowel sounds, non tender, soft, non-distended, no guarding, no rebound Rectal: deferred Genitourinary: normal inspection, no CVA tenderness Musculoskeletal: back normal, gait/station normal, normal range of motion, non- tender Neurologic: alert, oriented x3, responsive, motor strength/tone normal, sensory intact, speech normal Psychiatric: judgement/insight normal, memory normal, mood/affect normal Skin: normal color, no rash, warm/dry, well hydrated Lymphatic: no adenopathy Medical Decision Making PA Attestation Dr. Mccormick is my supervising Physician whom patient management has been discussed with. Diagnostic Impression: Primary Impression: Acute bronchitis Qualified Codes: J20.9 - Acute bronchitis, unspecified Additional Impressions: URI, acute Diarrhea Qualified Codes: R19.7 - Diarrhea, unspecified ER Course 41-year-old female with productive cough, subjective fevers, 6/10 sore throat and fatigue x5 days. She also reports diarrhea x 1 day. Denies abdominal pain , nausea, vomiting, abdominal tenderness. Patient reports 3 episodes of loose stools denies recent antibiotic use. Denies blood in the stool or black tarry stools. Patient reports inability to take a deep breath as it causes her to cough consistently. Patient reports wheezing. Patient states she gets bronchitis and pneumonia frequently. She denies ill contacts, rashes, or recent travel. Denies CP, Palpitations, LOC, AMS, dizziness, Changes in Vision, Sensation, paresthesias, or a sudden severe headache. -no relief from OTC cough syrups. Ddx considered but are not limited to URI, pneumonia, PE, strep pharyngitis, meningitis, GE, bronchitis Vital signs: Pt. is afebrile, the remaining VS are WNL H&PE are most consistent with URI- no meningeal signs, oropharynx is not involved, no evidence of bacterial infection at this time. ORDERS: -CXR: No consolidation, effusion, pneumothorax or acute cardiopulmonary findings per soft read in ED by Dr. Mccormick ED INTERVENTIONS: -Albuterol Nebulized tx. -Viscous lidocaine for sore throat. --PT. EDUCATION: Discussed antibiotic resistance with inappropriate prescribing of antibiotics for viral illnesses. Discussed signs and symptoms to indicate viral illness versus bacterial illness. DISCHARGE: At this time pt. is stable for d/c to home. Will provide printed patient care instructions, and any necessary prescriptions. Care plan and follow up instructions have been discussed with the patient prior to discharge. Last Vital Signs Date Time Temp Pulse Resp B/P Pulse Ox O2 Delivery O2 Flow Rate FiO2 01/14/17 19:39 90 20 98 Room Air 01/14/17 18:43 98.4 119/72 Disposition: HOME, SELF-CARE Condition: Stable Scripts Prednisone* (PREDNISONE*) 20 Mg Tablet 40 MG ORAL DAILY for 5 Days, #10 TAB Prov: Claudia Sauer 01/14/17 Dicyclomine Hcl* (BENTYL*) 10 Mg Capsule 10 MG ORAL FOUR TIMES A DAY for 2 Days, #9 CAP Prov: Claudia Sauer 01/14/17 Codeine/Promethazine Hcl* (PROMETHAZINE-CODEINE SYRUP*) 118 Ml Syrup 5 ML ORAL Q4H Y for For Cough, #118 ML 0 Refills Prov: Claudia Sauer 01/14/17 Albuterol Sulfate* (ALBUTEROL SULFATE MDI*) 8.5 Gm Hfa.aer.ad 2 PUFF INH Q3H, #1 INH 0 Refills Prov: Claudia Sauer 01/14/17 Patient Instructions: Acute Bronchitis, [id number], Diarrhea, Adult, Easy-to- Read Additional Instructions: Take medications as directed. Follow up with PCP in 3-5 days Return sooner to ED if new symptoms occur, or current symptoms become worse. Do not drink alcohol, drive, or operate heavy machinery while taking cough syrup as this may cause drowsiness. - Please note that this Emergency Department Report was dictated using [employer] technology software, occasionally this can lead to erroneous entry secondary to interpretation by the dictation equipment. Claudia Sauer Jan 14, 2017 20:12
[2017-01-14] MEDS ORDERED: ALBUTEROL SULF8.5 GM INH (20:16)
[2017-01-14] MEDS ORDERED: PROMETHAZINE-C118 M1 ORAL (20:16)
[2017-01-14] MEDS ORDERED: BENTYL10 MG ORAL (20:16)
[2017-01-14] MEDS ORDERED: PREDNISONE20 MG ORAL (20:16)
[2017-01-14 20:30] VITALS: BP 120/74
[2017-01-14] MEDS ORDERED: Lidocaine 2% Visc 15ml soln ORAL ONE (20:30)
--- NOTE | 2017-01-16 08:23 | Diagnostic Imaging Report ---
Indication: COUGH Technique: One view of the chest Comparison: Lung 06/11/2014 Findings: Lungs and pleural spaces are clear. Heart size is normal. No significant change Impression: No acute process This agrees with the preliminary interpretation provided by the emergency room physician
== END 2017-01-14 20:30 | disposition home or self-care (01) ==
LOC: EMR 19:50
DX: J20.9 Acute bronchitis, unspecified (principal); J06.9 Acute upper respiratory infection, unspecified; R19.7 Diarrhea, unspecified; Z86.718 Personal history of other venous thrombosis and embolism; Z88.8 Allergy status to other drugs, medicaments and biological substances; I10 Essential (primary) hypertension
CPT/HCPCS: 71010; 94640; 94664; 99284

== ENCOUNTER 2017-01-17 21:21 | Emergency (ER) | payer OTHER ==
[~2017-01-17] VITALS: Ht 160 cm; Wt 99.3 kg
[~2017-01-17 21:21] MED LIST changes: +BENTYL10 MG ORAL; +PREDNISONE20 MG ORAL; +PROMETHAZINE-C118 M1 ORAL
[2017-01-17 21:35] VITALS: BP 138/90
[2017-01-17] MEDS ORDERED: Ipratropium 0.02% Inh Soln 2.5ml UD ONE (21:48)
[2017-01-17] MEDS ORDERED: Albuterol ud Inhalation ONE (21:48)
[2017-01-17] MEDS ORDERED: Albuterol ud Inhalation HHN ONE (22:00)
[2017-01-17] MEDS ORDERED: Solu-MEDROL 125mg Inj IVP ONE (22:00)
[2017-01-17] MEDS ORDERED: Ipratropium 0.02% Inh Soln 2.5ml UD HHN ONE (22:00)
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
[2017-01-17] MEDS ORDERED: HYDROmorphone 1mg/ml Carpuject IVP ONE ×2 (22:15→23:15)
[2017-01-17 22:16] LABS: MEAN CORPUSCULAR HEMOGLOBIN 19.8 PG (27.0-31.0); MEAN CORPUSCULAR HGB CONC 30.5 G/DL (32.0-36.0); MEAN CORPUSCULAR VOLUME 65 FL (80-99); PLATELET COUNT 414 K/UL (150-450); RED CELL DISTRIBUTION WIDTH 17.1 % (11.6-14.8); WHITE BLOOD COUNT 16.2 K/UL (4.8-10.8)
[2017-01-17 22:18] LABS: BASOPHILS % (AUTO) 0.2 % (0.0-2.0); LYMPHOCYTES % (AUTO) 5.1 % (20.0-45.0); MONOCYTES % (AUTO) 2.5 % (1.0-10.0); NEUTROPHILS % (AUTO) 92.1 % (45.0-75.0)
[2017-01-17 22:43] LABS: ANION GAP 17 (5-15); CALCIUM 9.2 mg/dL (8.6-10.2); CARBON DIOXIDE 24 mEQ/L (20-30); CHLORIDE 98 mEQ/L (98-107); GLOMERULAR FILTRATION RATE > 60 mL/min (>60); HEMOLYSIS 8; POTASSIUM 3.3 mEQ/L (3.4-4.9); SODIUM 139 mEQ/L (135-145)
[2017-01-17 23:00] VITALS: BP 143/85
[2017-01-18] MEDS ORDERED: HYDROCODON-ACE1 EA15 ORAL (00:28)
[2017-01-18] MEDS ORDERED: ALBUTEROL SULF8.5 GM INH (00:28)
[2017-01-18] MEDS ORDERED: PREDNISONE20 MG ORAL (00:28)
[2017-01-18 00:44] VITALS: BP 131/75
== END 2017-01-18 00:44 | disposition home or self-care (01) ==
LOC: EMR 22:06
DX: J98.01 Acute bronchospasm (principal); J18.9 Pneumonia, unspecified organism; I10 Essential (primary) hypertension; Z88.6 Allergy status to analgesic agent
CPT/HCPCS: 36415; 80048; 85025; 94664; 96374; 96375; 99284; J1170; J2405; J2930

== ENCOUNTER 2017-02-16 18:19 | Emergency (ER) | payer OTHER ==
[~2017-02-16] VITALS: Ht 160 cm; Wt 98.9 kg
[2017-02-16 18:50] VITALS: BP 157/100
[2017-02-16] MEDS ORDERED: Albuterol ud Inhalation HHN ONE (19:00)
[2017-02-16] MEDS ORDERED: Ipratropium 0.02% Inh Soln 2.5ml UD HHN ONE (19:00)
[2017-02-16] MEDS ORDERED: Tylenol #3 tab (300mg/30mg) ORAL ONE (19:45)
[2017-02-16] MEDS ORDERED: PROAIR HFA8.5 GM INH (19:46)
[2017-02-16] MEDS ORDERED: PREDNISONE20 MG ORAL (19:46)
[2017-02-16] MEDS ORDERED: ACETAMINOPHEN-1 EAC1 ORAL (19:46)
[2017-02-16] MEDS ORDERED: ZITHROMAX250 MG ORAL (19:46)
[2017-02-16 20:00] VITALS: BP 130/90
--- NOTE | 2017-02-16 22:24 | Emergency Room Report ---
History of Present Illness General Chief Complaint: Upper Respiratory Illness Source: Patient Present Illness HPI The patient is a 41-year-old female presenting for 5 weeks of cough and fevers. She has tried [id number] cough medications which have not helped. She denies any known sick contacts or recent travel. She admits to a 5/10 dull ache to the mid chest which occurs only with coughing. Does not radiate. She denies hemoptysis. She denies other symptoms including nausea, vomiting, rash, headache, stiff neck Allergies: Coded Allergies: TRAMADOL (Verified Allergy, Unknown, 06/12/15) Patient History Past Medical History: see triage record Pertinent Family History: none Last Menstrual Period: JANUARY 28, 2017 Reviewed Nursing Documentation: PMH: Agreed, PSxH: Agreed Nursing Documentation-PMH Past Medical History: No History, Except For Hx Cardiac Problems: No - DVT, ovarian cyst Hx Hypertension: Yes Hx Cancer: No Hx Gastrointestinal Problems: Yes - Gastric ulcer; dilated esophagus Hx Dialysis: No Hx Neurological Problems: Yes Hx Seizures: Yes Review of Systems All Other Systems: negative except mentioned in HPI Physical Exam Vital Signs Date Time Temp Pulse Resp B/P Pulse Ox O2 Delivery O2 Flow Rate FiO2 02/16/17 18:28 98.8 98 20 157/109 96 Room Air Sp02 EP Interpretation: reviewed, normal General Appearance: no apparent distress, alert, GCS 15, non-toxic Head: normocephalic, atraumatic Eyes: bilateral eye PERRL, bilateral eye normal inspection ENT: hearing grossly normal, normal pharynx, no angioedema, normal voice Respiratory: no retraction, no accessory muscle use, speaking full sentences, wheezing - bilat diffuse Cardiovascular #1: regular rate, rhythm, no edema Genitourinary: normal inspection, no CVA tenderness Musculoskeletal: back normal, gait/station normal, normal range of motion, non- tender Neurologic: alert, oriented x3, responsive, motor strength/tone normal, sensory intact, speech normal Psychiatric: judgement/insight normal, memory normal, mood/affect normal, no suicidal/homicidal ideation Skin: normal color, no rash, warm/dry, well hydrated Lymphatic: no adenopathy Medical Decision Making PA Attestation Dr. Blair is my supervising physician. Patient management was discussed with my supervising physician Diagnostic Impression: Primary Impression: Bronchitis ER Course The patient is a 41-year-old female presenting for 5 weeks of cough and fevers Differential diagnosis include but not limited to pharyngitis, sinusitis, AOM, bronchitis, PNA Physical exam: Afebrile. No apparent distress HEENT exam is unremarkable. There is diffuse bilateral wheezing The patient is given a breathing treatment with improvement of wheezing due to symptoms lasting 5 months with no improvement, the patient will be given antibiotics. She'll also be given oral steroids, albuterol, and cough medication. ER precautions given Last Vital Signs Date Time Temp Pulse Resp B/P Pulse Ox O2 Delivery O2 Flow Rate FiO2 02/16/17 20:00 98.8 95 16 130/90 100 Room Air Status: improved Disposition: HOME, SELF-CARE Condition: Improved Scripts Prednisone* (PREDNISONE*) 20 Mg Tablet 40 MG ORAL DAILY, #10 TAB Prov: AVILA LAGUNAS P.A. 02/16/17 Albuterol Sulfate* (PROAIR HFA*) 8.5 Gm Hfa.aer.ad 2 PUFFS INH Q6H, #8.5 GM 0 Refills Prov: AVILA LAGUNAS.A. 02/16/17 Azithromycin* (ZITHROMAX*) 250 Mg Tablet 250 MG ORAL DAILY, #6 TAB 0 Refills Take two tables once daily for 1 day, then one tablet once daily for 4 days. Prov: AVILA LAGUNAS.A. 02/16/17 Acetaminophen With Codeine (T#3) (TYLENOL #3 TAB*) Y Tab 1 TAB ORAL Q6HR Y for For Pain, #10 TAB Prov: AVILA LAGUNAS.A. 02/16/17 Referrals: [facility] (PCP) Patient Instructions: Acute Bronchitis Additional Instructions: I discussed my findings with the patient. All questions and concerns have been answered. Treatment and medication compliance have been addressed. I advised the patient that they need to follow up with PMD in 3-5 days. Return to ED if pain remains or worsens, cough worsens or remains, you notice blood in your sputum, you notice wheezing, you experience a fever, or if needed for any reason. Patient verbalized understanding of discharge instructions. AVILA LAGUNAS Feb 16, 2017 22:24
== END 2017-02-16 20:05 | disposition home or self-care (01) ==
LOC: EMR 20:00
DX: J40 Bronchitis, not specified as acute or chronic (principal); I10 Essential (primary) hypertension; Z86.718 Personal history of other venous thrombosis and embolism; Z87.11 Personal history of peptic ulcer disease
CPT/HCPCS: 94640; 94664; 99284

== ENCOUNTER 2017-04-14 20:44 | Emergency (ER) | payer OTHER ==
[~2017-04-14] VITALS: Ht 160 cm; Wt 99.3 kg
[~2017-04-14 20:44] MED LIST changes: +ACETAMINOPHEN-1 EAC1 ORAL; +PROAIR HFA8.5 GM INH
--- NOTE | 2017-04-14 21:14 | Emergency Room Report ---
History of Present Illness General Chief Complaint: Chest Pain Source: Patient Present Illness HPI Is a 41-year-old female who presents with 2 complaints. The first complaint is cough and chest pain. His been ongoing for last 2 days. No fever or chills. No nausea no vomiting. Cough is nonproductive in nature. Now with chest pain. Worse with coughing. No radiation. No diaphoresis. No exertional component. Her second complaint is right arm pain. Worse with movement. Tingling in nature. [place] swollen. Mostly to the upper forearm. Allergies: Coded Allergies: TRAMADOL (Verified Allergy, Unknown, 06/12/15) Patient History Past Medical History: see triage record, old chart reviewed, HTN Past Surgical History: other Pertinent Family History: none Social History: Denies: smoking Immunizations: other Reviewed Nursing Documentation: PMH: Agreed, PSxH: Agreed Nursing Documentation-PMH Past Medical History: No History, Except For Hx Cardiac Problems: No - DVT, ovarian cyst Hx Hypertension: Yes Hx Cancer: No Hx Gastrointestinal Problems: Yes - Gastric ulcer; dilated esophagus Hx Dialysis: No Hx Neurological Problems: Yes Hx Seizures: Yes Review of Systems Eye: Denies: eye pain, blurred vision ENT: Denies: ear pain, nose congestion, throat swelling Respiratory: Reports: cough, Denies: shortness of breath Cardiovascular: Reports: chest pain, Denies: palpitations Gastrointestinal: Denies: abdominal pain, diarrhea, nausea, vomiting Musculoskeletal: Reports: joint pain, Denies: back pain Skin: Denies: rash Neurological: Denies: headache, numbness Endocrine: Denies: increased thirst, increased urine Hematologic/Lymphatic: Denies: easy bruising All Other Systems: negative except mentioned in HPI Physical Exam Vital Signs Date Time Temp Pulse Resp B/P (MAP) Pulse Ox O2 Delivery O2 Flow Rate FiO2 04/14/17 20:48 98.4 119 21 174/116 99 Room Air vitals with htn Sp02 EP Interpretation: reviewed, normal General Appearance: well appearing, no apparent distress, alert Head: normocephalic, atraumatic Eyes: bilateral eye PERRL, bilateral eye EOMI ENT: hearing grossly normal, normal pharynx Neck: full range of motion, supple, no meningismus Respiratory: chest non-tender, lungs clear, normal breath sounds Cardiovascular #1: regular rate, rhythm, no murmur Gastrointestinal: normal bowel sounds, non tender, no mass, no organomegaly, no bruit, non-distended Musculoskeletal: back normal, gait/station normal, normal range of motion, tender - Right forearm: Tenderness to the proximal forearm on the ulnar aspect. Mild edema. Radial pulse 2+. Psychiatric: mood/affect normal Skin: warm/dry Medical Decision Making Diagnostic Impression: Primary Impression: Chest pain Qualified Codes: R07.9 - Chest pain, unspecified Additional Impressions: Acute bronchitis Qualified Codes: J20.9 - Acute bronchitis, unspecified Muscle strain Hypertension Qualified Codes: I10 - Essential (primary) hypertension Anemia Qualified Codes: D64.9 - Anemia, unspecified UTI (urinary tract infection) Qualified Codes: N30.00 - Acute cystitis without hematuria ER Course Patient with viral bronchitis. No need for antibiotics. She does have a UTI which require antibiotics. No evidence of any DVT or fracture or arm. She's only taking 25 mg of metoprolol. We'll increase it to 50. Lab Results Impression labs with anemia EKG Diagnostic Results Rate: tachycardiac Rhythm: NSR ST Segments: no acute changes Rhythm Strip Diag. Results EP Interpretation: yes Rate: 100 Rhythm: NSR, no PVC's, no ectopy Last Vital Signs Date Time Temp Pulse Resp B/P (MAP) Pulse Ox O2 Delivery O2 Flow Rate FiO2 04/14/17 20:48 98.4 119 21 174/116 99 Room Air Status: improved Disposition: HOME, SELF-CARE Condition: Stable Scripts Cephalexin* (KEFLEX*) 500 Mg Capsule 500 MG ORAL TID, #21 CAP 0 Refills Prov: ARLEEN GARZA M.D. 04/14/17 Hydrocodone/Acetaminophen 5-325* (HYDROCODONE/ACETAMINOPHEN 5-325*) 1 Each Tablet 1 TAB ORAL Q6H Y for For Pain, #20 TAB 0 Refills Prov: ARLEEN GARZA M.D. 04/14/17 Metoprolol Succinate* (METOPROLOL SUCCINATE*) 50 Mg Tab.er.24h 50 MG ORAL DAILY, #30 TAB Prov: ARLEEN GARZA M.D. 04/14/17 Additional Instructions: Followup with your DrCristy in 7 days. Return if symptom worsen. ARLEEN GARZA M.D. Apr 14, 2017 21:14
[2017-04-14] MEDS ORDERED: Norco 5mg/325mg tab ORAL ONE (21:15)
[2017-04-14 22:02] VITALS: BP 149/86
[2017-04-14 22:10] LABS: APPEARANCE,URINE SLIGHTLY CLOUDY; KETONES,URINE NEGATIVE (NEGATIVE); LEUKOCYTE ESTERASE ,URINE 3+ (NEGATIVE); NITRITE,URINE NEGATIVE (NEGATIVE); PH,URINE 5 (4.5-8.0); PROTEIN,URINE NEGATIVE (NEGATIVE); UROBILINOGEN,URINE NORMAL MG/DL (0.0-1.0)
[2017-04-14 22:17] LABS: BASOPHILS % (AUTO) 1.3 % (0.0-2.0); EOSINOPHILS % (AUTO) 3.5 % (0.0-3.0); LYMPHOCYTES % (AUTO) 21.9 % (20.0-45.0); MEAN CORPUSCULAR HEMOGLOBIN 20.1 PG (27.0-31.0); MEAN CORPUSCULAR HGB CONC 30.9 G/DL (32.0-36.0); MEAN CORPUSCULAR VOLUME 65 FL (80-99); MEAN PLATELET VOLUME 7.3 FL (6.5-10.1); MONOCYTES % (AUTO) 3.9 % (1.0-10.0); NEUTROPHILS % (AUTO) 69.4 % (45.0-75.0); PLATELET COUNT 373 K/UL (150-450); RED CELL DISTRIBUTION WIDTH 17.6 % (11.6-14.8); WHITE BLOOD COUNT 9.5 K/UL (4.8-10.8)
[2017-04-14 22:18] LABS: BACTERIA,URINE MODERATE /HPF; SQUAMOUS EPITHELIAL CELL,UR FEW /LPF (NONE/OCC)
[2017-04-14 22:38] LABS: TROPONIN I < 0.30 ng/mL (<=0.30)
[2017-04-14 22:54] LABS: ANION GAP 17 (5-15); CALCIUM 8.6 mg/dL (8.6-10.2); CARBON DIOXIDE 22 mEQ/L (20-30); CHLORIDE 99 mEQ/L (98-107); CREATININE 0.9 mg/dL (0.5-0.9); GLOMERULAR FILTRATION RATE > 60 mL/min (>60); HEMOLYSIS 34; POTASSIUM 3.3 mEQ/L (3.4-4.9); SODIUM 138 mEQ/L (135-145)
[2017-04-14 22:58] VITALS: BP 127/87
[2017-04-14] MEDS ORDERED: METOPROLOL SUCC50 MG ORAL (23:03)
[2017-04-14] MEDS ORDERED: HYDROCODON-ACE1 EA15 ORAL (23:03)
[2017-04-14] MEDS ORDERED: KEFLEX500 MG ORAL (23:04)
[2017-04-14] MEDS ORDERED: Albuterol ud Inhalation HHN ONE (23:15)
[2017-04-14] MEDS ORDERED: Fluconazole 100mg tab ORAL ONE (23:15)
[2017-04-14 23:31] VITALS: BP 133/83
--- NOTE | 2017-04-15 12:19 | Diagnostic Imaging Report ---
Indication: Chest pain Technique: One view of the chest Comparison: 01/08/17 Findings: Lungs and pleural spaces are clear. Heart size is normal. No significant change Impression: No acute process
== END 2017-04-14 23:30 | disposition home or self-care (01) ==
LOC: EMR 21:06
DX: J20.9 Acute bronchitis, unspecified (principal); I10 Essential (primary) hypertension; S56.911A Strain of unspecified muscles, fascia and tendons at forearm level, right arm, initial encounter; X58.XXXA Exposure to other specified factors, initial encounter; Y92.89 Other specified places as the place of occurrence of the external cause; Z87.19 Personal history of other diseases of the digestive system; Z88.6 Allergy status to analgesic agent
CPT/HCPCS: 36415; 71010; 80048; 81003; 81025; 84484; 85025; 87086; 93005; 93971; 94640; 94664; 99284

== ENCOUNTER 2017-06-01 18:14 | Emergency (ER) | payer OTHER ==
[~2017-06-01] VITALS: Ht 160 cm; Wt 99.8 kg
[~2017-06-01 18:14] MED LIST changes: +KEFLEX500 MG ORAL; +METOPROLOL SUCC50 MG ORAL
[2017-06-01 19:05] VITALS: BP 150/98
[2017-06-01 19:09] LABS: APPEARANCE,URINE CLEAR; KETONES,URINE NEGATIVE (NEGATIVE); LEUKOCYTE ESTERASE ,URINE 3+ (NEGATIVE); NITRITE,URINE NEGATIVE (NEGATIVE); PH,URINE 5 (4.5-8.0); PROTEIN,URINE NEGATIVE (NEGATIVE); UROBILINOGEN,URINE NORMAL MG/DL (0.0-1.0)
[2017-06-01 19:29] LABS: BACTERIA,URINE FEW /HPF; SQUAMOUS EPITHELIAL CELL,UR FEW /LPF (NONE/OCC)
[2017-06-01] MEDS ORDERED: DIFLUCAN150 MG PO (19:55)
[2017-06-01] MEDS ORDERED: IBUPROFEN600 MG ORAL (19:55)
[2017-06-01] MEDS ORDERED: NITROFURANTOIN100 M2 ORAL (19:55)
[2017-06-01] MEDS ORDERED: ACETAMINOPHEN-1 EAC1 ORAL (20:00)
[2017-06-01 20:17] VITALS: BP 150/98
--- NOTE | 2017-06-01 22:25 | Emergency Room Report ---
History of Present Illness General Chief Complaint: General Complaint Source: Patient Present Illness [facility] The patient is a 41-year-old female presenting for continued right arm pain as well as increased urinary frequency and lower abdominal pain. She states that the right arm pain began approximately 1 month prior for no known reason. She was has been seen here and has had x-rays which were unremarkable. Pain continues and is a 9/10 dull ache primarily to the forearm and biceps. Worse with movement. She has been given a sling which helps. She has tried Motrin which mildly helps. She is also complaining of increased urinary frequency and lower bowel pain which began approximately one week prior. She denies dysuria, vaginal discharge , or hematuria. She denies any other symptoms including nausea, vomiting, fever, chills, shortness of breath, chest pain Allergies: Coded Allergies: TRAMADOL (Verified Allergy, Unknown, 06/12/15) Patient History Past Medical History: see triage record Pertinent Family History: none Last Menstrual Period: last month Now: No Reviewed Nursing Documentation: PMH: Agreed, PSxH: Agreed Nursing Documentation-PMH Past Medical History: No History, Except For Hx Cardiac Problems: No - DVT, ovarian cyst Hx Hypertension: Yes Hx Cancer: No Hx Gastrointestinal Problems: Yes - Gastric ulcer; dilated esophagus Hx Dialysis: No Hx Neurological Problems: Yes Hx Seizures: Yes Review of Systems All Other Systems: negative except mentioned in HPI Physical Exam Vital Signs Date Time Temp Pulse Resp B/P (MAP) Pulse Ox O2 Delivery O2 Flow Rate FiO2 06/01/17 18:15 98.1 101 18 150/98 98 Room Air Sp02 EP Interpretation: reviewed, normal General Appearance: no apparent distress, alert, GCS 15, non-toxic Head: normocephalic, atraumatic Eyes: bilateral eye normal inspection, bilateral eye PERRL ENT: hearing grossly normal, normal pharynx, no angioedema, normal voice Neck: full range of motion, supple/symm/no masses Gastrointestinal: normal inspection, normal bowel sounds, soft, no guarding, tenderness - suprapubic Genitourinary: normal inspection, no CVA tenderness Musculoskeletal: normal inspection, normal range of motion, tender - TTP over the R proximal forearm and R distal bicep Neurologic: alert, oriented x3, responsive, motor strength/tone normal, sensory intact, speech normal Psychiatric: judgement/insight normal, memory normal, mood/affect normal, no suicidal/homicidal ideation Skin: normal color, no rash, warm/dry, well hydrated Medical Decision Making PA Attestation Dr. Tineo is my supervising physician. Patient management was discussed with my supervising physician Diagnostic Impression: Primary Impression: Urinary tract infection Qualified Codes: N30.00 - Acute cystitis without hematuria Additional Impression: Right arm pain ER Course The patient is a 41-year-old female presenting for continued right arm pain as well as increased urinary frequency and lower abdominal pain. Differential diagnosis considered but not limited to: UTI, vaginitis, pyelonephritis, Ddx considered include but not limited to sprain/strain, fracture, contusion, Radicular neuropathy, among others Physical exam: Afebrile. No apparent distress There is tenderness to palpation over the right proximal forearm and distal bicep. No deformity. No skin changes. Full active range of motion is intact. Sensation is intact. Strength is 5/5. Abdomen: Soft. Nondistended. There is localized tenderness to palpation over suprapubic region. No CVA tenderness Urinalysis is consistent with UTI The patient will be discharged home and treated for UTI and is given prescription for pain medications. She also states that she gets a yeast infection after taking antibiotics and is given one dose of Diflucan. She was told that she needs to followup with orthopedics as the arm pain has continued. She was also told she may need advanced imaging. ER precautions given Laboratory Tests Test 06/01/17 18:40 Urine Color Pale yellow Urine Appearance Clear Urine pH 5 (4.5-8.0) Urine Specific [place] 1.020 (1.005-1.035) Urine Protein Negative (NEGATIVE) Urine Glucose (UA) Negative (NEGATIVE) Urine Ketones Negative (NEGATIVE) Urine Occult Blood Negative (NEGATIVE) Urine Nitrite Negative (NEGATIVE) Urine Bilirubin Negative (NEGATIVE) Urine Urobilinogen Normal MG/DL (0.0-1.0) Urine Leukocyte Esterase 3+ (NEGATIVE) H Urine RBC 2-4 /HPF (0 - 2) H Urine WBC 10-15 /HPF (0 - 2) H Urine Squamous Epithelial Cells Few /LPF (NONE/OCC) Urine Bacteria Few /HPF (NONE) Urine HCG, Qualitative Negative Lab Results Impression Consistent with UTI Last Vital Signs Date Time Temp Pulse Resp B/P (MAP) Pulse Ox O2 Delivery O2 Flow Rate FiO2 06/01/17 19:05 98.0 80 18 150/98 98 Room Air Status: improved Disposition: HOME, SELF-CARE Condition: Improved Scripts Acetaminophen With Codeine (T#3) (TYLENOL #3 TAB*) Y Tab 1 TAB ORAL Q6HR Y for For Pain, #10 TAB Prov: MARKANAVILA P.A. 06/01/17 Fluconazole (DIFLUCAN) 150 Mg Tablet 150 MG PO DAILY, #1 TAB Prov: TERZIAN,AVILA P.A. 06/01/17 Ibuprofen* (MOTRIN*) 600 Mg Tablet 600 MG ORAL Q8H Y for For Pain, #30 TAB 0 Refills Prov: TERZIAN,AVILA P.A. 06/01/17 Nitrofurantoin Monohyd/M-Cryst* (MACROBID 100 MG*) 100 Mg Capsule 100 MG ORAL EVERY 12 HOURS, #14 CAP Prov: TERZIAN,AVILA P.A. 06/01/17 Patient Instructions: Urinary Tract Infection, RICE for Routine Care of Injuries Additional Instructions: I discussed my findings with the patient. All questions and concerns have been answered. Treatment and medication compliance have been addressed. I advised the patient that they need to follow up with PMD in 3-5 days. Return to ED if symptoms worsen, new symptoms arise, or if needed for any reason. Patient verbalized understanding of discharge instructions. The patient was informed that she needs to followup with her primary doctor and may need advanced imaging of the right arm due to continued pain AVILA LAGUNAS Jun 01, 2017 22:25
== END 2017-06-01 20:17 | disposition home or self-care (01) ==
LOC: EMR 19:03
DX: N39.0 Urinary tract infection, site not specified (principal); M79.601 Pain in right arm; I10 Essential (primary) hypertension; Z86.718 Personal history of other venous thrombosis and embolism; Z88.6 Allergy status to analgesic agent; Z87.19 Personal history of other diseases of the digestive system
CPT/HCPCS: 81003; 81025; 87086; 99284

== ENCOUNTER 2017-06-23 21:50 | Emergency (ER) | payer OTHER ==
[~2017-06-23] VITALS: Ht 152.4 cm; Wt 90.7 kg
[~2017-06-23 21:50] MED LIST changes: +NITROFURANTOIN100 M2 ORAL
[2017-06-23] MEDS ORDERED: ALBUTEROL SULF8.5 GM INH (22:22)
[2017-06-23] MEDS ORDERED: AZITHROMYCIN250 MG ORAL (22:22)
[2017-06-23] MEDS ORDERED: IBUPROFEN600 MG ORAL (22:22)
--- NOTE | 2017-06-23 22:22 | Emergency Room Report ---
History of Present Illness General Chief Complaint: Flu Like Symptoms Source: Patient Present Illness HPI Is a 41-year-old female with no significant past medical history. She presents with fever and cough. Coughing up greenish sputum. Onset for last 4 days. Chest tightness with coughing. No nausea no vomiting. Worse with inspiration. Denies any other complaint. Allergies: Coded Allergies: TRAMADOL (Verified Allergy, Unknown, 06/12/15) Patient History Past Medical History: see triage record, old chart reviewed Past Surgical History: other Pertinent Family History: none Social History: Denies: smoking Last Menstrual Period: may 19 Now: No Immunizations: other Reviewed Nursing Documentation: PMH: Agreed, PSxH: Agreed Nursing Documentation-PMH Hx Cardiac Problems: No - DVT, ovarian cyst Hx Hypertension: Yes Hx Cancer: No Hx Gastrointestinal Problems: Yes - Gastric ulcer; dilated esophagus Hx Dialysis: No Hx Neurological Problems: Yes Hx Seizures: Yes Review of Systems Constitutional: Reports: sweats, fever Eye: Denies: eye pain, blurred vision ENT: Denies: ear pain, nose congestion, throat swelling Respiratory: Reports: cough, shortness of breath, sputum Cardiovascular: Reports: chest pain, Denies: palpitations Gastrointestinal: Denies: abdominal pain, diarrhea, nausea, vomiting Musculoskeletal: Denies: back pain, joint pain Skin: Denies: rash Neurological: Denies: headache, numbness Endocrine: Denies: increased thirst, increased urine Hematologic/Lymphatic: Denies: easy bruising All Other Systems: negative except mentioned in HPI Physical Exam Vital Signs Date Time Temp Pulse Resp B/P (MAP) Pulse Ox O2 Delivery O2 Flow Rate FiO2 06/23/17 21:56 98.2 91 18 155/91 98 Room Air vitals with high blood pressure Sp02 EP Interpretation: reviewed, normal General Appearance: well appearing, no apparent distress, alert Head: normocephalic, atraumatic Eyes: bilateral eye PERRL, bilateral eye EOMI ENT: hearing grossly normal, normal pharynx Neck: full range of motion, supple, no meningismus Respiratory: chest non-tender, rhonchi, other - Coughing fits with inspiration Cardiovascular #1: regular rate, rhythm, no murmur Gastrointestinal: normal bowel sounds, non tender, no mass, no organomegaly, no bruit, non-distended Musculoskeletal: back normal, gait/station normal, normal range of motion Psychiatric: mood/affect normal Skin: warm/dry Medical Decision Making Diagnostic Impression: Primary Impression: Atypical pneumonia ER Course Patient with coughing and subjective fever. Differential include pneumonia, your eye, atypical pneumonia to name a few. I see no evidence of ACS, PE, dissection. Better after breathing treatment. We'll discharge home. Last Vital Signs Date Time Temp Pulse Resp B/P (MAP) Pulse Ox O2 Delivery O2 Flow Rate FiO2 06/23/17 22:11 91 18 Room Air 06/23/17 21:56 98.2 155/91 98 Status: improved Disposition: HOME, SELF-CARE Condition: Stable Scripts Azithromycin* (ZITHROMAX*) 250 Mg Tablet 250 MG ORAL DAILY, #6 TAB 0 Refills Take two tablets by mouth today, then take one tablet by mouth daily for four days Prov: ARLEEN GARZA M.D. 06/23/17 Ibuprofen* (MOTRIN*) 600 Mg Tablet 600 MG ORAL Q8H Y for For Pain, #30 TAB 0 Refills Prov: ARLEEN GARZA M.D. 06/23/17 Albuterol Sulfate* (ALBUTEROL SULFATE MDI*) 8.5 Gm Hfa.aer.ad 2 PUFF INH Q4H Y for cough/wheezing, #1 EA 0 Refills Prov: ARLEEN GARZA M.D. 06/23/17 Additional Instructions: Followup with your DrCristy in 7 days. Increase fluids. Return if symptom worsen. ARLEEN GARZA M.D. Jun 23, 2017 22:22
[2017-06-23] MEDS ORDERED: Albuterol/Ipratropium 3ml neb HHN ONE (22:30)
[2017-06-23] MEDS ORDERED: FLUCONAZOLE100 MG ORAL (22:32)
[2017-06-23 22:36] VITALS: BP_SYST 130; BP_SYST 155; BP_DIAS 91; BP_DIAS 92
== END 2017-06-23 22:36 | disposition home or self-care (01) ==
LOC: EMR 22:12
DX: J18.9 Pneumonia, unspecified organism (principal); I10 Essential (primary) hypertension
CPT/HCPCS: 94640; 94664; 99283; J7620

== ENCOUNTER 2018-02-19 18:15 | Emergency (ER) | payer OTHER ==
[~2018-02-19] VITALS: Ht 162.6 cm; Wt 113.4 kg
[~2018-02-19 18:15] MED LIST changes: +AZITHROMYCIN250 MG ORAL
[2018-02-19 18:54] VITALS: BP 168/106
[2018-02-19] MEDS ORDERED: Tetanus/Diptheria/Pertussis Vaccine 0.5ml Syr IM ONE (19:00)
[2018-02-19] MEDS ORDERED: Bacitracin Oint UD TOPIC ONE (19:00)
[2018-02-19] MEDS ORDERED: Ketorolac 30mg Inj IM ONE (19:00)
[2018-02-19] MEDS ORDERED: Albuterol/Ipratropium 3ml neb HHN ONE (19:00)
--- NOTE | 2018-02-19 19:39 | Diagnostic Imaging Report ---
EXAM: XR Chest, 1 View CLINICAL HISTORY: PAIN TECHNIQUE: Frontal view of the chest. COMPARISON: 04/14/17. FINDINGS: Lungs: No consolidation or vascular congestion within limits for body habitus. Pleural space: Unremarkable. No pneumothorax. Heart: Unremarkable. No cardiomegaly. Mediastinum: Unremarkable. Bones/joints: Unremarkable. IMPRESSION: No radiographic findings of acute pulmonary disease.
--- NOTE | 2018-02-19 19:42 | Diagnostic Imaging Report ---
EXAM: XR Left Wrist Complete, 3 or More Views CLINICAL HISTORY: PAIN TECHNIQUE: Frontal, lateral and oblique views of the left wrist. COMPARISON: No relevant prior studies available. FINDINGS: Bones/joints: Unremarkable. No acute fracture. No dislocation. Soft tissues: Unremarkable. No radiopaque foreign body. IMPRESSION: Normal left wrist x-rays.
--- NOTE | 2018-02-19 19:43 | Diagnostic Imaging Report ---
EXAM: XR Right Hand Complete, 3 or More Views CLINICAL HISTORY: PAIN TECHNIQUE: Frontal, lateral and oblique views of the right hand. COMPARISON: No relevant prior studies available. FINDINGS: Bones/joints: Unremarkable. No acute fracture. No dislocation. Soft tissues: Unremarkable. No radiopaque foreign body. IMPRESSION: Normal right hand x-rays.
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
[2018-02-19] MEDS ORDERED: BACITRACIN-P28.35 GM TP (20:59)
[2018-02-19] MEDS ORDERED: TYLENOL EXTRA500 MG ORAL (20:59)
[2018-02-19] MEDS ORDERED: ALBUTEROL SULF8.5 GM INH (20:59)
[2018-02-19] MEDS ORDERED: AYGESTIN5 MG PO (21:26)
[2018-02-19 21:33] VITALS: BP 155/102
== END 2018-02-19 22:50 | disposition home or self-care (01) ==
LOC: EMR 18:43
DX: S51.811A Laceration without foreign body of right forearm, initial encounter (principal); S00.81XA Abrasion of other part of head, initial encounter; S60.222A Contusion of left hand, initial encounter; Y04.1XXA Assault by human bite, initial encounter; W25.XXXA Contact with sharp glass, initial encounter; Y07.9 Unspecified perpetrator of maltreatment and neglect; Y93.89 Activity, other specified; Y92.9 Unspecified place or not applicable; Z23 Encounter for immunization; I10 Essential (primary) hypertension
CPT/HCPCS: 12001; 71045; 73110; 73130; 90471; 90715; 94640; 94664; 96372; 99284; J1885; Z7502; J7620